=== PATIENT | male | born 1980 | race African-American/Black ===

== ENCOUNTER 2016-09-26 15:00 | Emergency (ER) | payer OTHER ==
[~2016-09-26] VITALS: Ht 185.4 cm; Wt 95.3 kg
[2016-09-26 15:08] VITALS: BP 160/98
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
[2016-09-26 15:59] LABS: ABSOLUTE BASOPHIL COUNT 0 /CUMM (0.0-0.2); ABSOLUTE EOSINOPHIL COUNT 0.2 /CUMM (0.0-0.7); ABSOLUTE GRANULOCYTE CT 2.9 /CUMM (1.4-6.5); ABSOLUTE MONOCYTE COUNT 0.4 /CUMM (0.10-0.60); BASOPHIL % 0.5 % (0.0-2.0); EOSINOPHIL % 3.2 % (0-5); GRANULOCYTE % 52.7 % (42.2-75.2); HEMATOCRIT 43.2 % (42-52); MEAN CORPUSCULAR HGB 30.9 PG (27.0-31.0); MEAN CORPUSCULAR HGB CONC 34.5 G/DL (33.0-37.0); MEAN CORPUSCULAR VOLUME 89.5 FL (80.0-94.0); MEAN PLATELET VOLUME 7.5 FL (7.4-10.4); PLATELET COUNT 245 /CUMM (130-400); RBC DISTRIBUTION WIDTH 12.9 % (11.5-14.5); RED BLOOD CELL CT 4.83 /CUMM (4.70-6.10); WHITE BLOOD CELL COUNT 5.5 /CUMM (4.8-10.8)
--- NOTE | 2016-09-26 16:05 | RADIOLOGY REPORT ---
EXAMINATION: XR CHEST CLINICAL INFORMATION: Evaluate for pathology. Chest pain. COMPARISON: None TECHNIQUE: 2 views of the chest were obtained. FINDINGS: Cardiomediastinal silhouette is within normal limits. Lungs are clear. Bony thorax is intact. IMPRESSION: No acute pulmonary disease.
[2016-09-26] MEDS ORDERED: ADVIL MIGRAINE200 M1 PO (16:50)
[2016-09-26] MEDS ORDERED: PERCOCET 5-3251 EACH PO (16:58)
[2016-09-26] MEDS ORDERED: NAPROXEN500 M2 PO (16:58)
== END 2016-09-26 17:08 ==
LOC: ERH 15:00
PROVIDERS: Physician Assistant Medical
DX: R07.89 Other chest pain (principal)
CPT/HCPCS: 93005; 93010

== ENCOUNTER 2017-01-02 15:09 | Emergency (ER) | payer OTHER ==
[~2017-01-02] VITALS: Ht 185.4 cm; Wt 86.2 kg
[~2017-01-02 15:09] MED LIST: ADVIL MIGRAINE200 M1 PO; NAPROXEN500 M2 PO; PERCOCET 5-3251 EACH PO
[2017-01-02 15:30] VITALS: BP 145/88
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
[2017-01-02] MEDS ORDERED: ROBAXIN500 M1 PO (17:19)
[2017-01-02] MEDS ORDERED: MEDROL4 M2 PO (17:19)
== END 2017-01-02 17:34 ==
LOC: ERH 15:09
DX: S16.1XXA Strain of muscle, fascia and tendon at neck level, initial encounter (principal); V49.40XA Driver injured in collision with unspecified motor vehicles in traffic accident, initial encounter; Y92.410 Unspecified street and highway as the place of occurrence of the external cause
CPT/HCPCS: 96372; J1885